=== PATIENT | male | born 1945 | race Caucasian/White ===

== ENCOUNTER 2024-03-29 05:14 | Day surgery (SDC) | payer OTHER, MEDICARE ==
[2024-03-28 09:27] VITALS: BMI 35.3
[2024-03-29 08:00] VITALS: TEMP 98
[2024-03-29 08:26] VITALS: RESP 16
[2024-03-29 08:32] VITALS: BP 131/69; PULSE 67
== END 2024-03-29 08:50 | disposition home or self-care (01) ==
LOC: JASU-ENDO 05:14
PROVIDERS: ATTEND Internal Medicine Gastroenterology
PROC: 0DBK8ZX Excision of Ascending Colon, Via Natural or Artificial Opening Endoscopic, Diagnostic (ICD-10-PCS; principal; 2024-03-29 08:00)
DX: Z12.11 Encounter for screening for malignant neoplasm of colon (principal); D12.2 Benign neoplasm of ascending colon
CPT/HCPCS: 88305-TC

== ENCOUNTER 2024-07-05 05:22 | Day surgery (SDC) | payer OTHER, MEDICARE ==
[2024-07-04 10:46] VITALS: BMI 34.7
[2024-07-05 09:30] VITALS: TEMP 97.8
[2024-07-05 10:01] VITALS: BP 155/70; PULSE 63; RESP 18
== END 2024-07-05 10:00 | disposition home or self-care (01) ==
LOC: JASU-ENDO 05:22
PROVIDERS: ATTEND Internal Medicine Gastroenterology
PROC: 0DB78ZX Excision of Stomach, Pylorus, Via Natural or Artificial Opening Endoscopic, Diagnostic (ICD-10-PCS; 2024-07-05)
PROC: 0DB68ZX Excision of Stomach, Via Natural or Artificial Opening Endoscopic, Diagnostic (ICD-10-PCS; 2024-07-05)
PROC: 0DB28ZX Excision of Middle Esophagus, Via Natural or Artificial Opening Endoscopic, Diagnostic (ICD-10-PCS; principal; 2024-07-05 08:30)
DX: K21.00 Gastro-esophageal reflux disease with esophagitis, without bleeding (principal)
CPT/HCPCS: 88305-TC; 88312-TC; 88342-TC